=== PATIENT | male | born 1955 | race Caucasian/White ===

== ENCOUNTER 2020-09-15 11:53 | Outpatient (CLI) | payer MEDICARE, SELFPAY ==
--- NOTE | ~2020-09-15 | XR_ITS ---
XR knee LT min 4V 09/15/2020 12:25 Indication: Left knee pain Procedure: 4 views left knee Comparison: No prior studies for comparison. Findings: There is mild osteoarthritis of the left knee. No fracture or traumatic malalignment. No si gnificant joint effusion. No radiopaque foreign bodies. Impression: 1: Mild osteoarthritis of the left knee. Reviewed, dictated and finalized at location B. Impression: 1: Mild osteoarthritis of the left knee.
== END 2020-09-15 11:54 ==
PROVIDERS: PCP Family Medicine Adolescent Medicine; Visit Provider Family Medicine Adolescent Medicine
DX: M25.562 Pain in left knee (principal); M17.12 Unilateral primary osteoarthritis, left knee
CPT/HCPCS: 73564

== ENCOUNTER 2020-10-17 06:52 | Outpatient (NON) | payer MEDICARE, SELFPAY ==
[2020-10-18 21:14] LABS: SARS-CoV-2 RNA PCR Negative
== END 2020-10-17 06:53 ==
PROVIDERS: PCP Family Medicine Adolescent Medicine; Visit Provider Family Medicine Adolescent Medicine
DX: Z20.828 Contact with and (suspected) exposure to other viral communicable diseases (principal); R50.9 Fever, unspecified; R53.83 Other fatigue; R51.9 Headache, unspecified
CPT/HCPCS: 87635; C9803; U0003

== ENCOUNTER → 2021-04-21 04:07 | Outpatient (CLI) | payer MEDICARE, SELFPAY ==
[2021-04-21 19:45] LABS: SARS-CoV-2 RNA PCR Negative
== END ==
PROVIDERS: PCP Family Medicine Adolescent Medicine; Visit Provider Internal Medicine Gastroenterology
DX: Z01.812 Encounter for preprocedural laboratory examination (principal); Z20.822 Contact with and (suspected) exposure to COVID-19
CPT/HCPCS: C9803; U0003; U0005

== ENCOUNTER 2021-04-25 01:13 | Day surgery (SDC) | payer MEDICARE, SELFPAY ==
[2021-04-19 10:18] VITALS: BMI 31.1
[2021-04-25 09:27] VITALS: BP 118/87; PULSE 78; RESP 18; TEMP 35.9; O2SAT 99
--- NOTE | 2021-04-25 09:33 | P.PNAN_ITS ---
Anes - Initial Pre Proc Eval Procedure: Operation Date: 04/25/21 10:30 Proposed Procedures p Colonoscopy - Cecil Jalloh MD Date/Time: 04/25/21 09:33 Surgeon: Cecil Jalloh MD Pre Op Diagnosis: occult gi bleed Patient Data Age: 65 Gender: M Height: 6 ft 1 in Weight: 100.6 kg Last Vital Signs Temp 96.7 F L 04/25/21 09:27 Pulse 78 04/25/21 09:27 Resp 18 04/25/21 09:27 BP 118/87 04/25/21 09:27 Pulse Ox 99 04/25/21 09:27 Allergies Allergy/AdvReac Type Severity Reaction Status Date / Time No Known Allergies Allergy Verified 04/25/21 09:26 Home Medications Medication Instructions Recorded Confirmed Type alprazolam 0.5 mg PO DAILY PRN 04/19/21 04/19/21 History buspirone 10 mg PO TID 04/19/21 04/19/21 History indomethacin 50 mg PO DAILY 04/19/21 04/19/21 History levothyroxine 75 mcg PO DAILY 04/19/21 04/19/21 History lithium carbonate 300 mg PO TID 04/19/21 04/19/21 History mirtazapine 15 mg PO HS 04/19/21 04/19/21 History quetiapine 400 mg PO HS 04/19/21 04/19/21 History Patient hx anesthesia problems: none Family hx anesthesia problems: none [facility] Past Medical History Medical History (Updated 04/25/21 @ 09:33 by Sunil Cotto MD) Anxiety Bipolar 1 disorder Social History Social History Living arrangements: with family Spiritual care concerns: No Anes - Eval Final PreProcedure Day of Procedure 04/25/21 09:33 Patient weight: overweight Heart: regular rate and rhythm Lungs: clear to auscultation Airway: Mallampati scale class II Neurological: alert and oriented Last oral intake: >/= 8 hours ASA classification: II Emergent: no Anesthetic plan: proceed Anesthesia type and monitoring: general GIVS and standard monitoring Informed Consent: The patient's anesthetic plan and its attendant risks and benefits were discussed with the patient/family/POA. Questions were solicited and answers provided to the satisfaction of the patient/family/POA.
[2021-04-25] MEDS: LACTATED RINGERS 1,000 ML 150 ML IV CONT (09:44)
--- NOTE | 2021-04-25 10:03 | WPDGICN ---
Assessment and Plan Assessment and plan (1) Occult blood in stools: Code(s): R19.5 - Other fecal abnormalities Status: Acute Assessment and Plan: Patient found to have occult blood on stool on routine screening exam plan is for screening colonoscopy at this time to evaluate more thoroughly. Further recommendations will be given after endoscopy. GI Consult Note Consult date/time: 04/25/21 10:03 HPI: Cecil Roberts is a 65 year old male Presents for colonoscopy. Patient recently identified as having Hemoccult-positive stools on routine screening exam. Patient denies any obvious bleeding. He denies abdominal pain. He states that his normal bowel movements. He did have a colonoscopy previously about 5 years ago. His family history is noncontributory. Review of Systems Review of Systems: All systems reviewed & are unremarkable except as noted in HPI and below PMFSH Past Medical History Medical History (Updated 04/25/21 @ 10:04 by Cecil Jalloh MD) Anxiety Bipolar 1 disorder Social History Social History Living arrangements: with family Spiritual care concerns: No Meds Home Medications and Allergies Home Medications Medication Instructions Recorded Confirmed Type alprazolam 0.5 mg PO DAILY PRN 04/19/21 04/19/21 History buspirone 10 mg PO TID 04/19/21 04/19/21 History indomethacin 50 mg PO DAILY 04/19/21 04/19/21 History levothyroxine 75 mcg PO DAILY 04/19/21 04/19/21 History lithium carbonate 300 mg PO TID 04/19/21 04/19/21 History mirtazapine 15 mg PO HS 04/19/21 04/19/21 History quetiapine 400 mg PO HS 04/19/21 04/19/21 History Allergies Allergy/AdvReac Type Severity Reaction Status Date / Time No Known Allergies Allergy Verified 04/25/21 09:26 Vital Signs Vital Signs - 24 hr 04/25/21 09:27 Temperature 96.7 F L Pulse Rate 78 Respiratory Rate 18 Blood Pressure 118/87 Pulse Oximetry 99 Exam Narrative: Exam Narrative: Physical exam reveals patient to be alert. Vital signs stable. HEENT exam is unremarkable. Patient is anicteric. Lungs are clear to auscultation and percussion. Heart is without murmur or extra sounds. Abdominal exam bowel sounds are present soft nontender with no organomegaly. Digital external rectal exam is normal.
[2021-04-25 10:39] VITALS: BP 109/73; PULSE 65; RESP 14; O2SAT 97
[2021-04-25 10:49] VITALS: BP 115/78; PULSE 67; RESP 14; O2SAT 96
[2021-04-25 10:59] VITALS: BP 135/78; PULSE 56; RESP 19; O2SAT 96
== END 2021-04-25 11:05 | disposition home or self-care (01) ==
PROVIDERS: PCP Family Medicine Adolescent Medicine; Visit Provider Internal Medicine Gastroenterology
PROC: 0DJD8ZZ Inspection of Lower Intestinal Tract, Via Natural or Artificial Opening Endoscopic (ICD-10-PCS; CPT 45378; principal; 2021-04-25 10:30)
DX: R19.5 Other fecal abnormalities (principal); D12.2 Benign neoplasm of ascending colon; D12.5 Benign neoplasm of sigmoid colon; K64.8 Other hemorrhoids; F31.9 Bipolar disorder, unspecified; F41.9 Anxiety disorder, unspecified
CPT/HCPCS: 45385; 88305; C9803; J2001; J2704; J7120; U0003; U0005